=== PATIENT | female | born 1980 | race Caucasian/White ===

== ENCOUNTER → 2017-02-15 | Outpatient (CLI) | payer OTHER ==
--- NOTE | 2017-02-15 16:09 | RAD ---
Indication right neck lump. Targeted ultrasound to a lump in the right neck was performed. No dominant mass is seen. A significant soft tissue finding is not seen. Occasional normal-appearing lymph nodes are noted.
== END | disposition home or self-care (01) ==
LOC: US 14:43
PROVIDERS: ATTEND Nurse Practitioner Family
DX: R22.1 Localized swelling, mass and lump, neck (principal)
CPT/HCPCS: 76536

== ENCOUNTER 2019-02-02 09:08 | Emergency (ER) | payer OTHER ==
[~2019-02-02] VITALS: Ht 172.7 cm; Wt 95.3 kg
[2019-02-02 09:57] VITALS: BP 110/71
--- NOTE | 2019-02-02 10:03 | RAD ---
FOOT LEFT 3V 02/02/2019 9:41 AM INDICATION: Foot injury with pain in the fourth digit COMPARISON: None available. TECHNIQUE: 3 views the left foot are provided. FINDINGS: There is no acute fracture or dislocation. Bone mineralization is within normal limits. Joint spaces are maintained. Regional soft tissues are within normal limits. There is no soft tissue gas or osseous erosion. There is a tiny plantar calcaneal enthesophyte. IMPRESSION: No acute fracture or dislocation. Electronically signed by: Ching Cardozo MD (02/02/2019 10:00 AM) [facility]
[2019-02-02] MEDS ORDERED: TRAM-48 PO ×2 (10:26→10:33)
--- NOTE | 2019-02-02 10:26 | PHYS DOC ---
Past Medical History Past Medical History: GERD, Hypothyroid Past Surgical History: Hysterectomy, Other Additional Past Surgical Histo: LEFT KNEE, THYROIDECTOMY Alcohol Use: None Drug Use: None Adult General Chief Complaint Chief Complaint: FOOT INJURY PAIN HPI HPI Patient is a 38 year old female who presents with complaining of left foot injury. Patient states she hit her left foot against the corner of a couch and a 25 pounds weight last night with pain in toes and lateral side of the chest to ankle that getting worse with walking and bearing weight. Patient denies focal neurodeficit and other injuries and states the pain did not get better with taking ibuprofen and apply ice on her foot. Review of Systems Review of Systems Constitutional: Denies fever or chills [] Eyes: Denies change in visual acuity, redness, or eye pain [] HENT: Denies nasal congestion or sore throat [] Respiratory: Denies cough or shortness of breath [] Cardiovascular: No additional information not addressed in HPI [] GI: Denies abdominal pain, nausea, vomiting, bloody stools or diarrhea [] : Denies dysuria or hematuria [] Musculoskeletal: Denies back pain, reports joint pain [] Integument: Denies rash or skin lesions [] Neurologic: Denies headache, focal weakness or sensory changes [] Endocrine: Denies polyuria or polydipsia [] All other systems were reviewed and found to be within normal limits, except as documented in this note. Allergies Allergies Allergies Coded Allergies Type Severity Reaction Last Updated Verified Penicillins Allergy Unknown 02/02/19 Yes sulfamethoxazole Allergy Unknown 02/02/19 Yes trimethoprim Allergy Unknown 02/02/19 Yes Physical Exam Physical Exam Constitutional: Well developed, well nourished, mild distress, non-toxic appearance. [] HENT: Normocephalic, atraumatic. Eyes: PERRLA, EOMI, conjunctiva normal, no discharge. [] Neck: Normal range of motion, no tenderness, supple, no stridor. [] Cardiovascular:Heart rate regular rhythm, no murmur [] Lungs & Thorax: Bilateral breath sounds clear to auscultation [] Extremities: Left foot without edema or erythema or deformity, mild tenderness in fourth and fifth toes and metatarsal area, no cyanosis, no clubbing, ROM intact, no edema. [] Neurologic: Alert and oriented X 3, no focal deficits noted. [] Psychologic: Affect normal, judgement normal, mood normal. [] Current Patient Data Vital Signs Vital Signs Date Time Temp Pulse Resp B/P (MAP) Pulse Ox O2 Delivery O2 Flow Rate FiO2 02/02/19 09:57 98.6 72 16 110/71 (84) 97 Room Air 98.6 EKG EKG [] Radiology/Procedures Radiology/Procedures [facility] [address] [place] [address] IMAGING REPORT Signed PATIENT: ELEONORA JOSE ACCOUNT: [id number] : 1980 LOCATION: ER AGE: 38 SEX: F EXAM STATUS: REG ER ORD. PHYSICIAN: BRONSON CASTILLO MD REASON: Foot injury, pain 4th digit PROCEDURE: FOOT LEFT 3V FOOT LEFT 3V 02/02/2019 9:41 AM INDICATION: Foot injury with pain in the fourth digit COMPARISON: None available. TECHNIQUE: 3 views the left foot are provided. FINDINGS: There is no acute fracture or dislocation. Bone mineralization is within normal limits. Joint spaces are maintained. Regional soft tissues are within normal limits. There is no soft tissue gas or osseous erosion. There is a tiny plantar calcaneal enthesophyte. IMPRESSION: No acute fracture or dislocation. Electronically signed by: Katie Babin MD (02/02/2019 10:00 AM) [facility] DICTATED and SIGNED BY: KATIE BABIN MD DATE: 02/02/19 1000 Course & Med Decision Making Course & Med Decision Making Pertinent Imaging studies reviewed. (See chart for details) Evaluation of patient in ER showed 38-year-old female patient with injury to left foot with unremarkable x-ray. Handy wrap was applied and ortho shoe was provided and patient was advised to apply ice and elevate her left leg. Dragon Disclaimer Dragon Disclaimer This electronic medical record was generated, in whole or in part, using a voice recognition dictation system. Departure Departure Impression: Primary Impression: Contusion of left foot including toes Disposition: HOME, SELF-CARE (at 1024) Condition: STABLE Referrals: GABE MENDOZA APRN (PCP) Patient Instructions: Foot Contusion Additional Instructions: Apply ice on the affected area Follow-up with your primary care physician in 3-5 days Return to ER if not getting better Scripts Tramadol Hcl (ULTRAM) 50 Mg Tablet 50 MG PO Q6HRS PRN for PAIN, #14 TAB 0 Refills Prov: BRONSON CASTILLO MD 02/02/19 Problem Qualifiers Primary Impression: Contusion of left foot including toes Encounter type: initial encounter Qualified Codes: S90.32XA - Contusion of left foot, initial encounter; S90.122A - Contusion of left lesser toe(s) without damage to nail, initial encounter BRONSON CASTILLO MD Feb 02, 2019 10:26
== END 2019-02-02 10:42 | disposition home or self-care (01) ==
LOC: ER 09:08
DX: S90.122A Contusion of left lesser toe(s) without damage to nail, initial encounter (principal); K21.9 Gastro-esophageal reflux disease without esophagitis; E03.9 Hypothyroidism, unspecified; Z88.0 Allergy status to penicillin; Z88.1 Allergy status to other antibiotic agents; Z88.2 Allergy status to sulfonamides; W22.03XA Walked into furniture, initial encounter; Y93.9 Activity, unspecified; Y92.89 Other specified places as the place of occurrence of the external cause; Y99.8 Other external cause status
CPT/HCPCS: 73630; 99284

== ENCOUNTER → 2019-07-08 | Outpatient (CLI) | payer OTHER ==
[~2019-07-08] MED LIST: TRAM-48 PO
--- NOTE | 2019-07-08 14:44 | KCIC ---
Three-view left wrist radiographs 07/08/2019 CLINICAL HISTORY: Left wrist pain. Fall 3 weeks ago. PA, lateral and oblique digital radiographs left wrist were obtained. No fracture or dislocation ofthe left wrist is seen. No radiopaque foreign body is noted. IMPRESSION: No fracture or dislocation of the left wrist is seen. Electronically signed by: Balbir Hooper MD (07/08/2019 2:41 PM) [facility] [place]
== END | disposition home or self-care (01) ==
LOC: KCIC 11:13
PROVIDERS: ATTEND Nurse Practitioner Family
DX: M25.532 Pain in left wrist (principal); W19.XXXA Unspecified fall, initial encounter; Y93.89 Activity, other specified; Y92.89 Other specified places as the place of occurrence of the external cause; Y99.8 Other external cause status
CPT/HCPCS: 73110

== ENCOUNTER 2019-11-12 12:42 | Emergency (ER) | payer OTHER ==
[~2019-11-12] VITALS: Ht 172.7 cm; Wt 102.3 kg
[2019-11-12 12:45] VITALS: BP 150/90
--- NOTE | 2019-11-12 13:37 | RAD ---
Three-view right shoulder study Clinical indications: Right shoulder pain. Shoulder like it pops out of place. FINDINGS: No acute fracture or dislocation or lytic process is seen. No AC joint separation is seen. The AC joint and glenohumeral joint are unremarkable. IMPRESSION: No acute osseous abnormality. Electronically signed by: Jus Juárez MD (11/12/2019 1:33 PM) [id number]
--- NOTE | 2019-11-12 13:58 | PHYS DOC ---
Past Medical History Past Medical History: GERD, Hypothyroid (MATTHIAS BAR APRN) Past Surgical History: Hysterectomy, Other Additional Past Surgical Histo: LEFT KNEE, THYROIDECTOMY (MATTHIAS BAR APRN) Smoking Status: Current Every Day Smoker Additional Information: 4-5 cigarettes daily Alcohol Use: None Drug Use: None (MATTHIAS BAR APRN) General Adult EDM: Chief Complaint: SHOULDER INJURY HPI: HPI: Patient is a 39 year old female who presents to the emergency department complaints of right shoulder pain. Patient states that yesterday evening she was blow drying her hair when she felt her right shoulder lock up. She denies any fall or injury. Patient states that her arm became stuck in an upright position and her significant other had to force it to go back down. She denies any paresthesia, or swelling of the affected extremity. She currently rates the pain a 10 out of 10 on the pain scale, she took naproxen earlier this morning with no relief of her discomfort, the pain increases with movement, it does not radiate. Patient denies any prior history of shoulder injury or dislocation. (MATTHIAS BAR APRN) Review of Systems: Review of Systems: Complete ROS is negative unless otherwise stated in the HPI. (MATTHIAS BAR APRN) Heart Score: Risk Factors: Risk Factors: DM, Current or recent (<one month) smoker, HTN, HLP, family history of CAD, obesity. Risk Scores: Score 0 - 3: 2.5% MACE over next 6 weeks - Discharge Home Score 4 - 6: 20.3% MACE over next 6 weeks - Admit for Clinical Observation Score 7 - 10: 72.7% MACE over next 6 weeks - Early Invasive Strategies (MATTHIAS BAR APRN) Allergies: Allergies: Allergies Coded Allergies Type Severity Reaction Last Updated Verified Penicillins Allergy Intermediate hives 11/12/19 Yes sulfamethoxazole Allergy Intermediate hives 11/12/19 Yes trimethoprim Allergy Intermediate hives 11/12/19 Yes (MATTHIAS BAR APRN) Physical Exam: PE: Constitutional: Well developed, well nourished, no acute distress, non-toxic appearance. [] HENT: Normocephalic, atraumatic, bilateral external ears normal, nose normal. [] Eyes: PERRLA, EOMI, conjunctiva normal, no discharge. [] Neck: Normal range of motion, no stridor. [] Cardiovascular:Heart rate regular rhythm Lungs & Thorax: Respirations even and unlabored, no retractions, no respiratory distress Skin: Warm, dry, no erythema, no rash. [] Extremities: Right shoulder: Diffuse bony tenderness, limited range of motion to 45 degrees laterally and anteriorly due to pain, 2+ radial pulse, sensation intact, no obvious deformity, no cyanosis, no edema. [] Neurologic: Alert and oriented X 3, no focal deficits noted. [] Psychologic: Affect normal, judgement normal, mood normal. [] (MATTHIAS BAR APRN) Current Patient Data: Vital Signs: Vital Signs Date Time Temp Pulse Resp B/P (MAP) Pulse Ox O2 Delivery O2 Flow Rate FiO2 11/12/19 12:45 97.8 72 16 150/90 (110) 98 Room Air 97.8 (MATTHIAS BAR APRN) EKG: EKG: [] (MATTHIAS BAR APRN) Radiology/Procedures: Radiology/Procedures: PROCEDURE: SHOULDER 2+V RIGHT Three-view right shoulder study Clinical indications: Right shoulder pain. Shoulder like it pops out of place. FINDINGS: No acute fracture or dislocation or lytic process is seen. No AC joint separation is seen. The AC joint and glenohumeral joint are unremarkable. IMPRESSION: No acute osseous abnormality. [] (MATTHIAS BAR APRN) Course & Med Decision Making: Course & Med Decision Making Pertinent Labs and Imaging studies reviewed. (See chart for details) 39-year-old female presented to the emergency department with complaints of right shoulder pain after her shoulder became stuck in 1 position last night. X-ray of the shoulder revealed no acute findings. The patient reported she took naproxen at home with no relief of her pain. She also reported that Tylenol and ibuprofen upset her stomach so she cannot take them. Patient placed in a sling, shoulder exercises provided. Recommend follow-up with Dr. Golden for further evaluation if symptoms persist, return to the ER symptoms worsen. Patient verbalized an understanding of home care, medications, follow-up, and return to ED instructions and was in agreement with the plan of care. [] (MATTHIAS BAR APRN) Course & Med Decision Making Staff Physician Addendum: I was working in the ER during the course of this patient's visit. I was available for consultation as needed, but I was not directly involved in the care of this patient. (FLAVIO MENDEZ MD) Dragon Disclaimer: Dragon Disclaimer: This electronic medical record was generated, in whole or in part, using a voice recognition dictation system. (MATTHIAS BAR APRN) Departure Departure Impression: Primary Impression: Acute pain of right shoulder Disposition: HOME, SELF-CARE Condition: STABLE Referrals: TATA GOLDEN MD Patient Instructions: Shoulder Exercises, Generic, SportsMed, Shoulder Pain, [id number] Additional Instructions: Continue taking naproxen twice daily as needed for pain.. Recommend application of ice, elevation, and rest of affected extremity. Wear the sling as needed for comfort, recommend following the shoulder exercises provided to prevent frozen shoulder. Follow-up with Dr. Golden if symptoms persist. Return to the ER if your symptoms worsen. Scripts Naproxen (NAPROXEN) 500 Mg Tablet 1 TAB PO BID PRN for PAIN for 10 Days, #20 TAB 0 Refills Prov: MATTHIAS BAR APRN 11/12/19 Justicifation of Admission Dx: Justifications for Admission: Justification of Admission Dx: N/A (MATTHIAS BAR APRN) MATTHIAS BAR APRN Nov 12, 2019 13:58 FLAVIO MENDEZ MD Nov 12, 2019 14:49
[2019-11-12] MEDS ORDERED: NAPR-514 PO (14:23)
== END 2019-11-12 14:35 | disposition home or self-care (01) ==
LOC: ER 12:42
DX: M25.511 Pain in right shoulder (principal); K21.9 Gastro-esophageal reflux disease without esophagitis; E03.9 Hypothyroidism, unspecified; F17.210 Nicotine dependence, cigarettes, uncomplicated; Z88.0 Allergy status to penicillin; Z88.1 Allergy status to other antibiotic agents; Z88.2 Allergy status to sulfonamides
CPT/HCPCS: 73030; 99283; A4565

== ENCOUNTER 2020-10-06 14:13 | Emergency (ER) | payer BC ==
[~2020-10-06] VITALS: Ht 172.7 cm; Wt 104.0 kg
[~2020-10-06 14:13] MED LIST changes: +NAPR-514 PO
[2020-10-06] MEDS ORDERED: IV NORMAL SALINE 1000ML BAG 1,000 ML IV SCH (14:45)
[2020-10-06 14:52] LABS: BASO # 0.1 x10^3/uL (0.0-0.2); BASO % 1 % (0-3); EOS # 0.2 x10^3/uL (0.0-0.7); EOS % 2 % (0-3); HEMATOCRIT 40.3 % (36.0-47.0); HEMOGLOBIN 13.9 g/dL (12.0-15.5); LYMPH # 3.6 x10^3/uL (1.0-4.8); LYMPH % 34 % (24-48); MEAN CORPUSCULAR HEMOGLOBIN 31 pg (25-35); MEAN CORPUSCULAR HGB CONC 35 g/dL (31-37); MEAN CORPUSCULAR VOLUME 90 fL (79-100); MONO # 0.6 x10^3/uL (0.0-1.1); MONO % 6 % (0-9); NEUT # 5.9 x10^3/uL (1.8-7.7); NEUT % 57 % (31-73); PLATELET COUNT 317 x10^3/uL (140-400); RED BLOOD COUNT 4.49 x10^6/uL (3.50-5.40); RED CELL DISTRIBUTION WIDTH 14.3 % (11.5-14.5); WHITE BLOOD COUNT 10.4 x10^3/uL (4.0-11.0)
[2020-10-06 15:00] LABS: BILIRUBIN,URINE NEGATIVE (NEG); CLARITY,URINE CLEAR; COLOR,URINE YELLOW; NITRITE,URINE NEGATIVE (NEG); PH,URINE 5.5 (<5.0-8.0); PROTEIN,URINE NEGATIVE (NEG-TRACE); UROBILINOGEN,URINE 0.2 mg/dL (0.2 mg/dL)
[2020-10-06 15:03] LABS: BACTERIA,URINE 0 /HPF (0-FEW); RBC,URINE 0 /HPF (0-2)
[2020-10-06 15:07] LABS: CALCIUM 9.2 mg/dL (8.5-10.1); GFR 61.7
[2020-10-06 15:15] LABS: ALBUMIN 3.9 g/dL (3.4-5.0); ALBUMIN/GLOBULIN RATIO 1.1 (1.0-1.7); TOTAL BILIRUBIN 0.4 mg/dL (0.2-1.0); TOTAL PROTEIN 7.5 g/dL (6.4-8.2)
[2020-10-06] MEDS ORDERED: CONTRAST GIVEN. MC PRN (15:15)
[2020-10-06] MEDS ORDERED: fentaNYL PF VIAL 100 MCG/2 ML VIAL IVP ONE (15:15)
[2020-10-06] MEDS ORDERED: IOHEXOL 300 MG/ML 100ML VIAL. IV ONE (15:15)
--- NOTE | 2020-10-06 15:17 | PHYS DOC ---
Past Medical History Past Medical History: GERD, Hypothyroid (DWAYNE GREEN MAGNETIC TAPE COMPOSER OPERATOR) Past Surgical History: Hysterectomy, Other Additional Past Surgical Histo: LEFT KNEE, THYROIDECTOMY (DWAYNE GREEN MAGNETIC TAPE COMPOSER OPERATOR) Smoking Status: Current Every Day Smoker Alcohol Use: None Drug Use: None (DWAYNE GREEN APRN) General Adult EDM: Chief Complaint: ABDOMINAL PAIN HPI: HPI: Patient is a 40 year old female who presents with 6 weeks of off-and-on inter mittent right lower quadrant sharp pain also radiates to the umbilical area. States she also has intermittent vomiting when the pain gets really bad. She is also had diarrhea of which now she sees blood in his diarrhea. All of this is intermittent. Right now she rates her pain a 7 out of 10. It is worse with walking and with straighten her leg out straight. She states she thinks she has had a fever off and on. Patient denies chest pain, shortness of breath, back pain, urinary symptoms, dizziness, numbness or tingling. (DWAYNE GREEN MAGNETIC TAPE COMPOSER OPERATOR) Review of Systems: Review of Systems: Constitutional: + fever or chills. [] Eyes: Denies change in visual acuity. [] HENT: Denies nasal congestion or sore throat. [] Respiratory: Denies cough or shortness of breath. [] Cardiovascular: Denies chest pain or edema. [] GI: + Right lower quadrant abdominal pain, +nausea, +vomiting, +bloody stools or +diarrhea. [] : Denies dysuria. [] Musculoskeletal: Denies back pain or joint pain. [] Integument: Denies rash. [] Neurologic: Denies headache, focal weakness or sensory changes. [] Endocrine: Denies polyuria or polydipsia. [] Lymphatic: Denies swollen glands. [] Psychiatric: Denies depression or anxiety. [] (DWAYNE GREEN MAGNETIC TAPE COMPOSER OPERATOR) Heart Score: C/O Chest Pain: No Risk Factors: Risk Factors: DM, Current or recent (<one month) smoker, HTN, HLP, family history of CAD, obesity. Risk Scores: Score 0 - 3: 2.5% MACE over next 6 weeks - Discharge Home Score 4 - 6: 20.3% MACE over next 6 weeks - Admit for Clinical Observation Score 7 - 10: 72.7% MACE over next 6 weeks - Early Invasive Strategies (DWAYNE GREEN APRN) Current Medications: Current Medications Medications (Trade) Dose Ordered Sig/Rissa Start Time Stop Time Status Last Admin Dose Admin Fentanyl Citrate (Fentanyl 2ml Vial) 50 mcg 1X ONCE 10/06/20 15:15 10/06/20 15:16 10/06/20 15:04 50 MCG Iohexol (Omnipaque 300 Mg/ml) 75 ml 1X ONCE 10/06/20 15:15 10/06/20 15:16 UNV Sodium Chloride 1,000 ml @ 1,000 mls/hr Q1H 10/06/20 14:45 10/06/20 15:44 10/06/20 15:03 1,000 MLS/HR (DWAYNE GREEN APRN) Allergies: Allergies: Allergies Coded Allergies Type Severity Reaction Last Updated Verified Penicillins Allergy Intermediate hives 11/12/19 Yes sulfamethoxazole Allergy Intermediate hives 11/12/19 Yes trimethoprim Allergy Intermediate hives 11/12/19 Yes (DWAYNE GREEN APRN) Physical Exam: PE: Constitutional: Well developed, well nourished, no acute distress, non-toxic appearance. [] HENT: Normocephalic, atraumatic, bilateral external ears normal, oropharynx moist, no oral exudates, nose normal. [] Eyes: PERRLA, EOMI, conjunctiva normal, no discharge. [] Neck: Normal range of motion, no tenderness, supple, no stridor. [] Cardiovascular:Heart rate regular rhythm, no murmur [] Lungs & Thorax: Bilateral breath sounds clear to auscultation [] Abdomen: Bowel sounds normal, soft, right lower chronic tenderness, no masses, no pulsatile masses. [] Skin: Warm, dry, no erythema, no rash. [] Back: No tenderness, no CVA tenderness. [] Extremities: No tenderness, no cyanosis, no clubbing, ROM intact, no edema. [] Neurologic: Alert and oriented X 3, normal motor function, normal sensory function, no focal deficits noted. [] Psychologic: Affect normal, judgement normal, mood normal. [] (DWAYNE GREEN APRN) Current Patient Data: Labs: Laboratory Tests Test 10/06/20 14:40 White Blood Count 10.4 x10^3/uL (4.0-11.0) Red Blood Count 4.49 x10^6/uL (3.50-5.40) Hemoglobin 13.9 g/dL (12.0-15.5) Hematocrit 40.3 % (36.0-47.0) Mean Corpuscular Volume 90 fL (79-100) Mean Corpuscular Hemoglobin 31 pg (25-35) Mean Corpuscular Hemoglobin Concent 35 g/dL (31-37) Red Cell Distribution Width 14.3 % (11.5-14.5) Platelet Count 317 x10^3/uL (140-400) Neutrophils (%) (Auto) 57 % (31-73) Lymphocytes (%) (Auto) 34 % (24-48) Monocytes (%) (Auto) 6 % (0-9) Eosinophils (%) (Auto) 2 % (0-3) Basophils (%) (Auto) 1 % (0-3) Neutrophils # (Auto) 5.9 x10^3/uL (1.8-7.7) Lymphocytes # (Auto) 3.6 x10^3/uL (1.0-4.8) Monocytes # (Auto) 0.6 x10^3/uL (0.0-1.1) Eosinophils # (Auto) 0.2 x10^3/uL (0.0-0.7) Basophils # (Auto) 0.1 x10^3/uL (0.0-0.2) Urine Collection Type Unknown Urine Color Yellow Urine Clarity Clear Urine pH 5.5 (<5.0-8.0) Urine Specific [place] <=1.005 (1.000-1.030) Urine Protein Negative mg/dL (NEG-TRACE) Urine Glucose (UA) Negative mg/dL (NEG) Urine Ketones (Stick) Negative mg/dL (NEG) Urine Blood Negative (NEG) Urine Nitrite Negative (NEG) Urine Bilirubin Negative (NEG) Urine Urobilinogen Dipstick 0.2 mg/dL (0.2 mg/dL) Urine Leukocyte Esterase Negative (NEG) Urine RBC 0 /HPF (0-2) Urine WBC 1-4 /HPF (0-4) Urine Squamous Epithelial Cells Few /LPF Urine Bacteria 0 /HPF (0-FEW) Sodium Level 140 mmol/L (136-145) Potassium Level 4.0 mmol/L (3.5-5.1) Chloride Level 104 mmol/L (98-107) Carbon Dioxide Level 28 mmol/L (21-32) Anion Gap 8 (6-14) Blood Urea Nitrogen 10 mg/dL (7-20) Creatinine 1.0 mg/dL (0.6-1.0) Estimated GFR (Cockcroft-Gault) 61.7 BUN/Creatinine Ratio 10 (6-20) Glucose Level 89 mg/dL (70-99) Calcium Level 9.2 mg/dL (8.5-10.1) Total Bilirubin Pending Aspartate Amino Transferase (AST) Pending Alanine Aminotransferase (ALT) Pending Alkaline Phosphatase Pending Total Protein Pending Albumin Pending Albumin/Globulin Ratio Pending Lipase Pending Laboratory Tests 10/06/20 14:40 Laboratory Tests 10/06/20 14:40 Vital Signs: Vital Signs Date Time Temp Pulse Resp B/P (MAP) Pulse Ox O2 Delivery O2 Flow Rate FiO2 10/06/20 14:32 98.1 75 12 140/82 (101) 97 Room Air 98.1 (DWAYNE GREEN APRN) EKG: EKG: [] (DWAYNE GREEN APRN) Radiology/Procedures: Radiology/Procedures: [] Impression: [facility] [address] [place] [address] IMAGING REPORT Signed PATIENT: ELEONORA JOSE ACCOUNT: [id number] : 1980 LOCATION: ER AGE: 40 SEX: F EXAM STATUS: REG ER ORD. PHYSICIAN: DWAYNE GREEN APRN REASON: RLQ PAIN, DIARRHEA WITH BLOOD PROCEDURE: CT ABD PELV W/ IV CONTRST ONLY EXAM: Abdomen and pelvis CT with intravenous contrast. HISTORY: Right lower quadrant pain. TECHNIQUE: Computed tomographic images of the abdomen and pelvis were obtained following the administration of intravenous contrast. Multiplanar reformatting was performed. *One or more of the following individualized dose reduction techniques were utilized for this examination: 1. Automated exposure control. 2. Adjustment of the mA and/or kV according to patient size. 3. Use of iterative reconstruction technique. COMPARISON: None. FINDINGS: Evaluation of the lower thorax is unremarkable. There is no suspicious hepatic lesion. The gallbladder, pancreas, spleen, adrenal glands and kidneys are unremarkable. The stomach is unremarkable. There is no appendicitis. There is no bowel obstruction. There is no abnormal bowel wall thickening. There are few sigmoid diverticula. There is no evidence of diverticulitis. The bladder is unremarkable. The uterus is absent. The aorta is normal in caliber. There is no lymphadenopathy. There is no suspicious or acute osseous finding. IMPRESSION: No acute abdominal or pelvic finding. Electronically signed by: Nereida Kim MD (10/06/2020 3:29 PM) [id number] DICTATED and SIGNED BY: NEREIDA KIM MD DATE: 10/06/20 [id number] (DWAYNE GREEN APRN) Course & Med Decision Making: Course & Med Decision Making Pertinent Labs and Imaging studies reviewed. (See chart for details) See HPI. Alert and oriented x4. Ambulatory with a steady gait. Speaks in full clear sentences. Afebrile. Skin pink warm and dry. Right lower quadrant pain with palpation but no rebound tenderness. No pain with straight leg raise or obturator signs. Abdomen pelvis shows diverticuli. Lab work is unremarkable. Urinalysis shows no infection. I will refer her to GI. [] (DWAYNE GREEN APRN) Dragon Disclaimer: Dragon Disclaimer: This electronic medical record was generated, in whole or in part, using a voice recognition dictation system. (DWAYNE GREEN APRN) Departure Departure Impression: Primary Impression: Intermittent abdominal pain Disposition: 01 HOME / SELF CARE / HOMELESS Condition: STABLE Referrals: GABE MENDOZA APRN (PCP) ANNA HOBBS MD Patient Instructions: Diet for Diarrhea, Adult, Diverticulosis Additional Instructions: Follow-up with your primary care provider. I have also referred you to a GI doctor that you can call to make an appointment. Drink plenty of fluids. You begin running a high fever return to the hospital. Scripts Hydrocodone Bit/Acetaminophen (HYDROCODONE-APAP 5-325 ) 1 Tab Tablet 1 TAB PO PRN Q6HRS PRN for PAIN, #10 TAB 0 Refills Prov: DWAYNE GREEN APRN 6/10/21 Ondansetron (ONDANSETRON ODT) 4 Mg Tab.rapdis 1 TAB PO PRN Q6-8HRS, #16 TAB Prov: DWAYNE GREEN APRN 10/06/20 Attending Signature Attending Signature I have reviewed the PA/COMMUNICATIONS MAINTAINER's note and plan of care. I was available for consultation as needed during the patient's visit in the emergency department. I agree with the clinical impression, plan, and disposition. (SHYAM LNADRUM DO) DWAYNE GREEN MAGNETIC TAPE COMPOSER OPERATOR Oct 06, 2020 15:17 SHYAM LANDRUM DO Oct 07, 2020 14:38
--- NOTE | 2020-10-06 15:31 | RAD ---
EXAM: Abdomen and pelvis CT with intravenous contrast. HISTORY: Right lower quadrant pain. TECHNIQUE: Computed tomographic images of the abdomen and pelvis were obtained following the administ ration of intravenous contrast. Multiplanar reformatting was performed. *One or more of the following individualized dose reduction techniques were utilized for this examina tion: 1. Automated exposure control. 2. Adjustment of the mA and/or kV according to patient size. 3. Use of iterative reconstruction technique. COMPARISON: None. FINDINGS: Evaluation of the lower thorax is unremarkable. There is no suspicious hepatic lesion. The gallbladder, pancreas, spleen, adrenal glands and kidneys are unremarkable. The stomach is unremarkab le. There is no appendicitis. There is no bowel obstruction. There is no abnormal bowel wall thickeni ng. There are few sigmoid diverticula. There is no evidence of diverticulitis. The bladder is unremar kable. The uterus is absent. The aorta is normal in caliber. There is no lymphadenopathy. There is no suspicious or acute osseous finding. IMPRESSION: No acute abdominal or pelvic finding. Electronically signed by: Nereida Estrella MD (10/06/2020 3:29 PM) [id number]
[2020-10-06] MEDS ORDERED: ONDA4TAB12 PO (15:39)
[2020-10-06] MEDS ORDERED: HYDR-2761 PO (15:40)
[2020-10-06 16:00] VITALS: BP 102/71
== END 2020-10-06 16:00 | disposition home or self-care (01) ==
LOC: ER 14:13
DX: R10.31 Right lower quadrant pain (principal); R11.2 Nausea with vomiting, unspecified; R19.7 Diarrhea, unspecified; K21.9 Gastro-esophageal reflux disease without esophagitis; E03.9 Hypothyroidism, unspecified; F17.200 Nicotine dependence, unspecified, uncomplicated; Z88.0 Allergy status to penicillin; Z88.2 Allergy status to sulfonamides; Z88.1 Allergy status to other antibiotic agents
CPT/HCPCS: 36415; 74177; 80053; 81001; 83690; 85025; 96374; 99285; J3010; J7030; Q9967